=== PATIENT | female | born 1955 | race Caucasian/White ===

== ENCOUNTER 2016-11-17 14:39 | Observation (INO) | payer OTHER ==
[~2016-11-17] VITALS: Ht 162.6 cm; Wt 90.6 kg
--- NOTE | 2016-11-17 15:50 | DIAGNOSTIC IMAGING REPORT ---
PROCEDURE: XR CHEST 1 VIEW INDICATION: TIA TECHNIQUE: Portable AP view 03:39 p.m. COMPARISON: None. FINDINGS: Minor left mid lung atelectasis/scarring. Heart and mediastinum are normal. Thorax is normal. IMPRESSION: 1. Minor left mid lung atelectasis/scarring.
--- NOTE | 2016-11-17 15:53 | DIAGNOSTIC IMAGING REPORT ---
PROCEDURE: CT HEAD WITHOUT CONTRAST INDICATION: STROKE TECHNIQUE: Axial CT images were acquired through the head. Coronal and sagittal reformations were created. COMPARISON: None. FINDINGS: No intracranial hemorrhage or extraaxial fluid collections. Ventricles are normal in size, shape and position. There is no mass, mass effect or midline shift. The hallman-white matter differentiation is normal. There is no edema. The calvarium is intact. The paranasal sinuses and mastoid air cells are normally aerated. The extracranial soft tissues and orbits are normal. IMPRESSION: 1. No CT evidence of acute intracranial process. 2. Findings discussed with Dr. Shore at [address] scans at this facility use dose modulation, iterative reconstruction, and/or weight-based dosing when appropriate to reduce radiation dose to as low as reasonably achievable.
--- NOTE | 2016-11-17 17:18 | DIAGNOSTIC IMAGING REPORT ---
PROCEDURE: US BILATERAL CAROTID DOPPLER INDICATION: STROKE/CVA TECHNIQUE: Color Doppler duplex imaging of the carotid and vertebral vessels. COMPARISON: None. FINDINGS: Mild intimal thickening. Right common carotid artery peak systolic velocity 63 cm/second. Right internal carotid artery peak systolic velocity 102 cm/second. Right external carotid artery peak systolic velocity 66 cm/second. Right vhwlzhgn-pd-yytqau carotid artery ratio 1.6 Right vertebral artery peak systolic velocity 37 cm/second antegrade. Left common carotid artery peak systolic velocity 67 cm/second. Left internal carotid artery peak systolic velocity 96 cm/second. Left external carotid artery peak systolic velocity 64 cm/second. Left lbdelzuc-qi-kkedsc carotid artery ratio 1.4 Left vertebral artery peak systolic velocity 46 cm/second antegrade. IMPRESSION: 1. Mild intimal thickening without hemodynamically significant lesion 2. Bilateral ICA 5-15% stenosis Velocity criteria are extrapolated from diameter data as defined by the Society of Radiologists in Ultrasound Consensus Conference, Radiology 2003; 229; 340-346.
--- NOTE | 2016-11-17 17:18 | DIAGNOSTIC IMAGING REPORT ---
PROCEDURE: US BILATERAL CAROTID DOPPLER INDICATION: STROKE/CVA TECHNIQUE: Color Doppler duplex imaging of the carotid and vertebral vessels. COMPARISON: None. FINDINGS: Mild intimal thickening. Right common carotid artery peak systolic velocity 63 cm/second. Right internal carotid artery peak systolic velocity 102 cm/second. Right external carotid artery peak systolic velocity 66 cm/second. Right tgmttdcw-lu-ogaylw carotid artery ratio 1.6 Right vertebral artery peak systolic velocity 37 cm/second antegrade. Left common carotid artery peak systolic velocity 67 cm/second. Left internal carotid artery peak systolic velocity 96 cm/second. Left external carotid artery peak systolic velocity 64 cm/second. Left mjfropyc-md-egsxrk carotid artery ratio 1.4 Left vertebral artery peak systolic velocity 46 cm/second antegrade. IMPRESSION: 1. Mild intimal thickening without hemodynamically significant lesion 2. Bilateral ICA 5-15% stenosis Velocity criteria are extrapolated from diameter data as defined by the Society of Radiologists in Ultrasound Consensus Conference, Radiology 2003; 229; 340-346.
--- NOTE | 2016-11-17 20:02 | ED ORDER SUMMARY ---
..... Patient: CHRISTA MONTENEGRO OrderSheet [facility] VisitID: [id number] [place] [address] 61y, F Registration Date/Time: 11/17/2016 ORDER SHEET Weight: 99.7 kg (stated) Allergies: No Known Drug Allergy GENERAL ORDERS: Chest 1V Urgent (15:24 11/17/2016 Herminio JEAN BAPTISTE) (Ack 15:34 IJurca ER Tech1) (15:58 EHassan R.N.) CT Head wo Cont Urgent (15:25 11/17/2016 Herminio JEAN BAPTISTE) (Ack 15:34 Reala ER Tech1) (15:58 EHassan R.N.) Division Sergeant (Continuous) (15:11/17/2016 Herminio JEAN BAPTISTE) (Ack 15:34 BRITNEYurca ER Tech1) (15:38 EHassan R.N.) US Carotid Doppler Bilat Urgent (15:11/17/2016 Herminio JEAN BAPTISTE) (Ack 15:34 BRITNEYurca ER Tech1) (16:20 EHassan R.N.) Cardiac Panel Stat (15:25 11/17/2016 Herminio JEAN BAPTISTE) (Ack 15:34 BRITNEYurca ER Tech1) (15:38 EHassan R.N.) TSH Urgent (15:11/17/2016 Herminio JEAN BAPTISTE) (Ack 15:34 Nelson ER Tech1) (15:38 EHassan R.N.) Pulse oximeter (15:25 11/17/2016 Herminio JEAN BAPTISTE) (Ack 15:34 Nelson ER Tech1) (15:38 EHassan R.N.) EKG - ER Stat (15:25 11/17/2016 Herminio JEAN BAPTISTE) (Ack 15:34 Nelson ER Tech1) (15:58 EHassan R.N.) LP Tray (17:51 11/17/2016 Herminio JEAN BAPTISTE) (18:18 EHassan R.N.) CSF, Cell Count (on tube 3.) Urgent (19:08 11/17/2016 Herminio JEAN BAPTISTE) (Ack 19:15 SRedmond) (21:09 EHassan R.N.) CSF, Culture Urgent (19:08 11/17/2016 Herminio JEAN BAPTISTE) (Ack 19:15 SRejimmy) (21:09 EHassan R.N.) CSF, Glucose Urgent (19:08 11/17/2016 Herminio JEAN BAPTISTE) (Ack 19:15 SRejimmy) (21:09 EHassan R.N.) CSF, Protein Urgent (19:08 11/17/2016 Herminio JEAN BAPTISTE) (Ack 19:15 SRedmtrang) (21:10 EHassan R.N.) - (Viral cultures on CSF.) (20:56 11/17/2016 Herminio JEAN BAPTISTE) (21:04 SRerubenond) CTA Head and Neck (No) (N/A) Urgent (21:03 11/17/2016 Herminio JEAN BAPTISTE) (Ack 21:05 SRejimmy) (21:40 EHassan R.N.) BNP Urgent (21:04 11/17/2016 Herminio JEAN BAPTISTE) (Ack 21:06 SRedmond) MEDICATION ORDERS: Aspirin PO 325 mg (NOW) (20:08 11/17/2016 Herminio JEAN BAPTISTE) (Ack 20:22 RCollier R.N.) (20:27 Brianna R.N.) IV FLUIDS: IV Saline Lock (15:25 11/17/2016 Herminio JEAN BAPTISTE) (15:39 EHassan R.N.) Demerol IV 12.5 mg (NOW) (17:51 11/17/2016 Herminio JEAN BAPTISTE) (18:19 EHassan R.N.) Dilaudid IV 0.5 mg (NOW) (18:59 11/17/2016 Alpeshn R.N. verbal order read back to Herminio JEAN BAPTISTE) (19:11 EHassan R.N.) Zofran IV 4 mg (NOW) (21:23 11/17/2016 Herminio JEAN BAPTISTE) (21:38 EHassan R.N.) ORDER SHEET NOTES: [Electronically signed by Ada Nicole R.N. (23:26 11/17/2016)] [Electronically signed by Raoul Shore MD (07:37 11/18/2016)] [Electronically locked/signed by Ada Nicole R.N. (23:26 11/17/2016)]
--- NOTE | 2016-11-17 20:02 | ED CLINICAL REPORT ---
Clinical Report - Physicians/Mid Levels [facility] [address] [place] [address] 11/17/2016 14:41 Patient: CHRISTA MONTENEGRO Time Seen: 14:54 Nov 17 2016; initial documentation. Arrived- By private vehicle. Historian- patient. CPT: ER phys charges level 5 plus (#[id number]). EKG interpretation (#[id number]). HISTORY OF PRESENT ILLNESS Chief Complaint: PARESTHESIA and IMPAIRED SPEECH. VISUAL DISTURBANCE. This started Hand numbness started in the morning . About 1300 this developed into loss of vision to the left and blurry vision. Staff at admitting also thought she had slurred speech and is now gone. The patient has had numbness. No weakness. She has had difficulty with speech and visual disturbance. At its maximum deficit described as moderate. When seen in the E.D., it was gone. No dizziness, altered mental status, seizure or blackouts. Usually is alert and oriented X3 and has normal mobility. Similar symptoms previously: None. Recent medical care: Not recently seen/assessed. REVIEW OF SYSTEMS No fever, headache, head injury, chest pain or difficulty breathing. No cough, sputum production, sore throat or throat or abdominal pain. No nausea, diarrhea, black stools or stools or skin rash. No enlarged lymph nodes, joint pain, vomiting or bloody stools or stools. No epistaxis, hematuria, diabetic symptoms or easy bruising. All systems otherwise negative, except as recorded above. PAST HISTORY ( Hypercholesterolemia. COPD - Chronic Obstructive Pulmonary Disease. - ADDITIONAL SURGERIES: Appendectomy. Bone spur. Carpal Tunnel Surgery.). No history of stroke, seizure, dementia, hypertension or diabetes mellitus. Medications: Simvastatin Oral. Magnesium Oral. Zantac Oral. Allergies: No Known Drug Allergy. SOCIAL HISTORY Heavy tobacco smoker (cigarette)- 1 pack per day. No alcohol use or drug use. ADDITIONAL NOTES The nursing notes have been reviewed. PHYSICAL EXAM Vital Signs: 11/17/2016 14:41 BP: 148/61. HR: 74. RR: 15. O2 saturation: 95%. Temp: 98.5 F. Pain level now: 0/10. Appearance: Alert. No acute distress. Head: Head atraumatic. Eyes: Pupils equal, round and reactive to light. ENT: Normal ENT inspection. Airway intact. Neck: Normal inspection. Neck supple. CVS: Normal heart rate and rhythm. Heart sounds normal. Pulses normal. Respiratory: No respiratory distress. Breath sounds normal. Abdomen: Soft and nontender. No organomegaly. Back: Normal inspection. Skin: Skin warm. Normal skin color. No rash. Extremities: No lower extremity edema. Neuro: Alert. Oriented X 3. Mood/affect normal. Speech normal. Cranial nerves normal (as tested). No cerebellar findings. No motor deficit. Reflexes normal. NIH Stroke Scale: score 0. Level of Consciousness: alert (0). LOC Questions: both (0). LOC Commands: both (0). Best gaze: normal (0). Visual field loss: none (0). Facial palsy: normal (0). Motor arm: no drift right arm (0) and no drift left arm (0). Motor leg: no drift right leg (0) and no drift left leg (0). Limb ataxia: none (0). Sensory loss: none (0). Aphasia: none (0). Dysarthria: normal (0). Extinction and inattention: none (0). LABS, X-RAYS, AND EKG EKG: Normal sinus rhythm. Normal P waves. Normal QRS complex. Normal axis. Normal ST and T waves. Prior EKG unavailable. The study has been interpreted contemporaneously. The study has been independently viewed by me. The EKG appears to be a good tracing. Chest X-ray: No infiltrate. Views: AP (portable). Technique: good. The X-rays were independently viewed by me and interpreted contemporaneously by me. CT Head: No acute disease. Laboratory Tests: CBC w Diff: (KEVIN: 11/17/2016 14:45) ( MsgRcvd 11/17/2016 15:38) Final results Test Result Flag Units (Reference) WHITE BLOOD COUNT 7.5 K/uL (4.5-11.5) RED BLOOD COUNT 4.75 M/uL (4.00-5.20) HEMOGLOBIN 15.4 gm/dL (12.0-16.0) HEMATOCRIT 46.0 % (36.0-46.0) MEAN CELL VOLUME 97 fL (80-100) MEAN CORPUSCULAR HGB 32 pg (26-34) MEAN CORPUSCULAR HGB CONC 33 g/dL (31-37) RED CELL DISTRIBUTION WIDTH 12.6 % (11.6-14.8) PLATELET COUNT 245 K/uL (150-400) NEUTROPHIL % 50.9 % (50-75) LYMPH % 38.0 % (25-40) MONO % 5.9 % (3-14) EOSINOPHIL % 4.2 H % (0-4) BASOPHIL % 1.0 % (0-2) CHEM 13 PANEL: (KEVIN: 11/17/2016 14:45) ( MsgRcvd 11/17/2016 15:57) Final results Test Result Flag Units (Reference) GLUCOSE 90 mg/dL (70-110) BUN 10 mg/dL (7-18) CREATININE 0.9 mg/dL (0.6-1.3) Estimated GFR >60 mL/min Estimated GFR- >60 mL/min Note: Persistent reduction over 3 months in eGFR<60 mL/min/1.73 m2 defines CKD. Patients with eGFR values>=60 mL/min/1.73 m2 may also have CKD if evidence ofpersistent proteinuria. Additional information may be foundat www.kidney.org. SODIUM 144 mmol/L (136-145) POTASSIUM 4.0 mmol/L (3.5-5.1) CHLORIDE 109 H mmol/L (98-107) CARBON DIOXIDE 28 mmol/L (21-32) CALCIUM 9.2 mg/dL (8.5-10.1) TOTAL PROTEIN 7.7 g/dL (6.4-8.2) ALBUMIN 3.9 g/dL (3.3-5.0) BILIRUBIN, TOTAL 0.3 mg/dL (0.0-1.0) ALKALINE PHOSPHATASE 119 H U/L (46-116) AST (SGOT) 14 L U/L (15-37) ALT (SGPT) 21 U/L (12-78) CPK 121 U/L (24-260) MAGNESIUM 2.0 mg/dL (1.8-2.4) TROPONIN I <0.05 L ng/mL (0.00-1.5) TROPONIN REFERENCE RANGE:<0.1 NEGATIVE0.1-1.5 INDETERMINANT>1.5 POSITIVE THYROID STIMULATING HORMONE 2.273 uIU/mL (0.30-3.74) . Note - Tests: (Carotid US negative.). PROGRESS AND PROCEDURES Lumbar Puncture: Lumbar puncture performed by me. Risks, benefits and alternatives were discussed. Consent was obtained from patient. Sterile technique was used. Local lidocaine anesthesia was used. The area was cleansed with Betadine. Patient was in sitting position. LP performed at the L4-5 interspace. A 22g needle was used. No complications observed. Color- clear. Protein- 52, mildly increased. Glucose, normal. RBC's. (1). WBC's- 0. Course of Care: 17:36 11/17/16. Reports visual changes are back. Evaluation shows slight medial field defect right eye. Pt does have progressive neck pain and stiffness. She has no other neuro deficits. Will need spinal tap. CT is negative. Discussed with pt who wishes to proceed. ASA 325 mg po. Discussed case with on-call health care provider, ([facility] stroke team. Dr Montano.who is accepting admission to [facility]>). Reviewed test results. Agreed upon treatment plan. Refers case to other health care provider. Patient/family counseled. Old medical records ordered. Disposition orders written. Disposition: Admitted to Acute Care. 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 (Electronically signed by Raoul Shore MD 11/18/2016 7:37)
--- NOTE | 2016-11-17 20:02 | ED NURSING NOTES ---
Clinical Report - Nurses [facility] [address] [place] [address] 11/17/2016 14:41 Patient: CHRISTA MONTENEGRO TRIAGE Triage time 1440 PM. Acuity: LEVEL 2. Chief Complaint: WEAKNESS, NUMBNESS and IMPAIRED SPEECH. Alert. No acute distress. RAMANDEEP COMA SCORE: Stamps Coma Scale: 15- eyes open spontaneously (4); best verbal response- oriented x 4 (5); best motor response- obeys commands (6). --14:57 Ada Nicole R.N. 14:41 11/17/16. BP: 148/61. HR: 74. RR: 15. O2 saturation: 95% on room air. Temp: 98.5 F. Pain level now: 0/10. --14:57 Ada Nicole R.N. Weight: 99.7 kg stated. Height/Length: 63 inches Per Patient. BMI: 38.9. --14:42 Ada Nicole R.N. Medications Zantac Oral. --14:54 Ada Nicole R.N. Magnesium Oral. --14:54 Ada Nicole R.N. Simvastatin Oral. --14:57 Ada Nicole R.N. Allergies No Known Drug Allergy. --14:52 Ada Nicole R.N. Medication/allergy information source: the patient. --14:57 Ada Nicole R.N. History Arrived by private vehicle. Historian: patient. Accompanied by family. Primary physician (Dr. Lanny pierce). ( Pt states at home when started having numbness and tingling on the left hand, denies radiating anywhere else, then started having blurred vision, slurred speech and H/A. Called [facility] at around 1pm which EMS was called pt refused to come via EMS and had a friend drive her to the ED. Pt states that all symptoms have resolved. As per registration, pt was having slurred speech upon arrival. Code stroke called, FAST exam negative.). This started today 1130 AM. Onset. (1130 AM). She has had a headache. No impaired speech, trouble walking or swallowing, dizziness or weakness. No numbness. 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 PAST MEDICAL HX: Immunizations: up-to-date. SOCIAL HX: Heavy tobacco smoker- less than 1 pack per day. No alcohol use or drug use. No infectious disease exposure. SELF HARM ASSESSMENT: A self harm assessment was performed. The patient answered "no" to the question "Do you have thoughts of harming or killing yourself?" and "Have you recently had thoughts about harming or killing others?". FALL RISK ASSESSMENT: Fall risk assessment completed. No fall risk identified. NUTRITIONAL RISK ASSESSMENT: The nutritional risk assessment revealed no deficiencies. FUNCTIONAL ASSESSMENT: Functional assessment: no impairments noted. LEARNING NEEDS ASSESSMENT: The learning needs assessment revealed no barriers. SKIN INTEGRITY ASSESSMENT: Skin integrity risk assessment completed. No skin integrity risk identified. --14:57 Ada Nicole R.N. PROBLEMS: Hypercholesterolemia. COPD - Chronic Obstructive Pulmonary Disease. --14:54 Ada Nicole R.N. ADDITIONAL SURGERIES: Appendectomy. Bone spur. Carpal Tunnel Surgery. --14:54 Ada Nicole R.N. Interventions ID band on patient. --14:57 Ada Nicole R.N. PHYSICAL ASSESSMENT Baseline functional status: usually alert, oriented x4 and cooperative. Verbal response: usually clear. Motor response: usually steady gait and moves all extremities equally GENERAL / NEURO / PSYCH: Awake. Oriented X 4. Speech normal. Slurred speech (as per registration noted a bit of slurred speech/ resolved). Mood/affect normal. Moves all extremities. No motor deficit. No sensory deficit. HEENT: Pupils equal, round and reactive to light. Pharynx within normal limits. RESPIRATORY: Breath sounds within normal limits. Respirations not labored. CVS: Normal sinus rhythm noted. Capillary refill less than 2 seconds. SKIN: Skin is intact, warm and dry. --14:59 Ada Nicole R.N. NURSING PROGRESS NOTES Cardiac rhythm: normal sinus rhythm. The initial plan of care for this patient has been created This plan of care was discussed with the patient. Patient ID band checked for patient name, birthdate and medical record number: patient confirmed. Blood samples drawn from the right forearm by nurse per protocol ; labeled in presence of the patient and sent to lab: rainbow set. Patient gowned. Reassurance given. Patient identifiers checked. Call light placed in reach. Side rails up x 2. Bed placed in lowest position. Brakes of bed on. Patient ready for evaluation- ED physician notified. --15:00 Ada Nicole R.N. 14:59 11/17/16. BP: 141/72. HR: 74. RR: 22. O2 saturation: 96%. Pain level now: 0/10. --15:00 Ada Nicole R.N. The patient is calm. Overall patient status is the same- she states feels better. GENERAL / NEURO / PSYCH: The patient reports headache. Denies weakness and numbness. Alert. Oriented X 4. Speech normal. No weakness. HEENT: Denies visual field deficit. Pupillary exam: Right pupil 2mm, round and briskly reactive to light directly. Left pupil: 2mm, round and briskly reactive to light directly. GI / : Denies nausea. --15:00 Ada Nicole R.N. 15:14 11/17/2016 Site #1 started via IV in the right forearm with an 20g angiocath; one attempt. Blood drawn: rainbow set. Labeled in the presence of the patient and sent to the lab. --15:39 Ada Nicole R.N. 16:01 11/17/16. BP: 136/76. HR: 72. RR: 14. O2 saturation: 100% on room air. Temp: 98.3 F (oral). Pain level now: 0/10. --16:02 Ada Nicole R.N. Cardiac rhythm: normal sinus rhythm. radiation monitor, pulse oximeter and NIBP monitor placed on patient. Reassurance given. GENERAL / NEURO / PSYCH: The patient reports headache. Denies weakness and numbness. Speech normal. No weakness. HEENT: Denies visual field deficit. GI / : Denies nausea. --16:02 Ada Nicole R.N. 15:30 11/17/16. BP: 159/71 (regular adult cuff) taken on the left arm, via an automated monitor, while lying. HR: 78. RR: 12. O2 saturation: 100% on room air. Pain level now: 0/10. --16:04 Ada Nicole R.N. late entry - 15:30 PM. Cardiac rhythm: normal sinus rhythm. radiation monitor, pulse oximeter and NIBP monitor placed on patient. Reassurance given. The patient is calm. Overall patient status is improved- she states feels better. Call light placed in reach. --16:04 Ada Nicole R.N. 15:15 11/17/16. BP: 130/78 (regular adult cuff) taken on the left arm, via an automated monitor, while lying. HR: 70. RR: 14. O2 saturation: 100%. Pain level now: 0/10. --16:07 Ada Nicole R.N. late entry - 15:15 PM. Cardiac rhythm: normal sinus rhythm. GENERAL / NEURO / PSYCH: The patient reports headache. Denies weakness and numbness. No decreased alertness. Speech normal. No weakness or numbness. HEENT: Denies visual field deficit. Pupillary exam: Right pupil 2mm, round and briskly reactive to light directly. Left pupil: 2mm, round and briskly reactive to light directly. GI / : Denies nausea. SKIN: Skin is warm. --16:07 Ada Nicole R.N. 18:09 11/17/2016 Demerol (Meperidine HCl) IVP 12.5 mg given over 30 second(s) via site #1. Allergies verified and confirmed 5 rights. IV patency established. IV site checked: no pain, redness, or swelling. IV flushed thoroughly pre- and post-medication administration. IVP given by RN. --18:19 Ada Nicole R.N. 18:00 11/17/16. BP: 156/71 (regular adult cuff) taken on the left arm, via an automated monitor, while sitting. HR: 72 (regular). RR: 15. O2 saturation: 100% on room air. Temp: 98.5 F (oral). Pain level now: 0/10. --18:21 Ada Nicole R.N. Cardiac rhythm: normal sinus rhythm. radiation monitor, pulse oximeter and NIBP monitor placed on patient. Reassurance given. The patient is calm and resting quietly. Overall patient status is the same- she states feels the same. ( at approximately 1710, pt complaint of "blurred vision" MD aware, LP ordered, pt aware of progress. Will monitor). Call light placed in reach. Side rails up x 1. Bed placed in lowest position. Brakes of bed on. --18:21 Ada Nicole R.N. 18:47 11/17/2016 Demerol IVP Response: no adverse reaction. --19:12 Ada Nicole R.N. 19:06 11/17/2016 Dilaudid (HYDROmorphone HCl PF) IVP 0.5 mg given over 1 minute(s) via site #1. Allergies verified, confirmed 5 rights and sedative warning given to the patient. IV patency established. IV site checked: no pain, redness, or swelling. IV flushed thoroughly pre- and post-medication administration. IVP given by RN. --19:11 Ada Nicole R.N. Cardiac rhythm: normal sinus rhythm. radiation monitor, pulse oximeter and NIBP monitor placed on patient. Reassurance given. ( Consent obtained for LP, procedure done and tolelated well, a bit "dizzy post" VSS, pt laying flat as ordered). GENERAL / NEURO / PSYCH: The patient reports headache. Denies weakness and numbness. GI / : Denies nausea. Patient identifiers checked. Call light placed in reach. Side rails up. --19:15 Ada Nicole R.N. 19:12 11/17/16. BP: 121/63. HR: 66. RR: 14. O2 saturation: 98% on room air. Temp: 98.4 F (oral). Pain level now: 0/10. --19:15 Ada Nicole R.N. Cardiac rhythm: normal sinus rhythm. radiation monitor, pulse oximeter and NIBP monitor placed on patient. Reassurance given. GENERAL / NEURO / PSYCH: The patient reports headache. Denies weakness and numbness. Speech normal. No weakness. HEENT: Denies visual field deficit. GI / : Denies nausea. Call light placed in reach. --20:03 Ada Nicole R.N. 20:02 11/17/16. BP: 148/55. HR: 57. RR: 15. O2 saturation: 100% on room air. Pain level now: 02/06. --20:03 Ada Nicole R.N. 20:26 11/17/2016 Aspirin PO Tablets 325 mg given. Allergies verified and confirmed 5 rights. --20:27 Katie Garrison R.N. 21:13 11/17/2016 Dilaudid IVP Response: no adverse reaction the patient feels the same. --21:38 Ada Nicole R.N. 21:23 11/17/2016 Aspirin PO Response: no adverse reaction. --21:38 Ada Nicole R.N. 21:38 11/17/2016 Zofran (Ondansetron HCl) IVP 4 mg given over 2 minute(s) via site #1. Allergies verified and confirmed 5 rights. IV patency established. IV site checked: no pain, redness, or swelling. IV flushed thoroughly pre- and post-medication administration. IVP given by RN. --21:38 Ada Nicole R.N. Cardiac rhythm: normal sinus rhythm. Reassurance given. Overall patient status is the same- she states feels the same. ( Just returned from CTA, pt felt nauseas, zofran given as ordered, VSS, awaiting on bed asigment). GENERAL / NEURO / PSYCH: The patient reports headache. GI / : The patient reports nausea. Patient returned from CT by stretcher with nurse. (2142 PM). --21:43 Ada Nicole R.N. 21:41 11/17/16. BP: 103/88. HR: 75. RR: 18. O2 saturation: 96% on room air. Pain level now: 01/07. --21:43 Ada Nicole R.N. 21:44 11/17/2016 Site #1 reassessed; patent, infusing well and no signs of infection or infiltration. Converted to saline lock. Flushed with 10 mL saline. --21:44 Ada Nicole R.N. late entry - 20:00 PM. --21:44 Ada Nicole R.N. 20:00 11/17/16. BP: 133/69. HR: 76. RR: 14. O2 saturation: 96% on room air. Pain level now: 12/07. --21:44 Ada Nicole R.N. DISPOSITION / DISCHARGE Cardiac rhythm: normal sinus rhythm. Departure time: 2236 PM. Condition at departure: improved and stable. The goals identified in the patient's plan of care were met. Report was given to a nurse. Report included patient's care, treatment, medications, reviewed medication reconcilliation, and condition (including any recent changes or anticipated changes). All questions were answered. Report was acknowledged and care was transferred. (INDIA Baker). ( All concerns addressed, VSS, pt NPO as ordered, n/v resolved, neuro status intact). FALL RISK ASSESSMENT: Fall risk assessment completed. No fall risk identified. --23:25 Ada Nicole R.N. 22:38 11/17/16. BP: 130/78 (regular adult cuff) taken on the left arm, via an automated monitor, while lying. HR: 72 (regular). RR: 14. O2 saturation: 98% on room air. Temp: 97.3 F (oral). Pain level now: 01/07. --23:25 Ada Nicole R.N. Locked/Released at 11/17/2016 23:26 by Ada Nicole R.N.
--- NOTE | 2016-11-17 20:02 | ED ORDER SUMMARY ---
..... Patient: CHRISTA MONTENEGRO OrderSheet [facility] VisitID: [id number] [place] [address] 61y, F Registration Date/Time: 11/17/2016 ORDER SHEET Weight: 99.7 kg (stated) Allergies: No Known Drug Allergy GENERAL ORDERS: Chest 1V Urgent (15:24 11/17/2016 Herminio JEAN BAPTISTE) (Ack 15:34 IJurca ER Tech1) (15:58 EHassan R.N.) CT Head wo Cont Urgent (15:25 11/17/2016 Herminio JEAN BAPTISTE) (Ack 15:34 Reala ER Tech1) (15:58 EHassan R.N.) Growth Media Mixer Mushroom (Continuous) (15:11/17/2016 Herminio JEAN BAPTISTE) (Ack 15:34 BRITNEYurca ER Tech1) (15:38 EHassan R.N.) US Carotid Doppler Bilat Urgent (15:11/17/2016 Herminio JEAN BAPTISTE) (Ack 15:34 BRITNEYurca ER Tech1) (16:20 EHassan R.N.) Cardiac Panel Stat (15:25 11/17/2016 Herminio JEAN BAPTISTE) (Ack 15:34 BRITNEYurca ER Tech1) (15:38 EHassan R.N.) TSH Urgent (15:11/17/2016 Herminio JEAN BAPTISTE) (Ack 15:34 Nelson ER Tech1) (15:38 EHassan R.N.) Pulse oximeter (15:25 11/17/2016 Herminio JEAN BAPTISTE) (Ack 15:34 Nelson ER Tech1) (15:38 EHassan R.N.) EKG - ER Stat (15:25 11/17/2016 Herminio JEAN BAPTISTE) (Ack 15:34 Nelson ER Tech1) (15:58 EHassan R.N.) LP Tray (17:51 11/17/2016 Herminio JEAN BAPTISTE) (18:18 EHassan R.N.) CSF, Cell Count (on tube 3.) Urgent (19:08 11/17/2016 Herminio JEAN BAPTISTE) (Ack 19:15 SRedmond) (21:09 EHassan R.N.) CSF, Culture Urgent (19:08 11/17/2016 Herminio JEAN BAPTISTE) (Ack 19:15 SRejimmy) (21:09 EHassan R.N.) CSF, Glucose Urgent (19:08 11/17/2016 Herminio JEAN BAPTISTE) (Ack 19:15 SRejimmy) (21:09 EHassan R.N.) CSF, Protein Urgent (19:08 11/17/2016 Herminio JEAN BAPTISTE) (Ack 19:15 SRedmtrang) (21:10 EHassan R.N.) - (Viral cultures on CSF.) (20:56 11/17/2016 Herminio JEAN BAPTISTE) (21:04 SRerubenond) CTA Head and Neck (No) (N/A) Urgent (21:03 11/17/2016 Herminio JEAN BAPTISTE) (Ack 21:05 SRejimmy) (21:40 EHassan R.N.) BNP Urgent (21:04 11/17/2016 Herminio JEAN BAPTISTE) (Ack 21:06 SRedmond) MEDICATION ORDERS: Aspirin PO 325 mg (NOW) (20:08 11/17/2016 Herminio JEAN BAPTISTE) (Ack 20:22 RCollier R.N.) (20:27 Brianna R.N.) IV FLUIDS: IV Saline Lock (15:25 11/17/2016 Herminio JEAN BAPTISTE) (15:39 EHassan R.N.) Demerol IV 12.5 mg (NOW) (17:51 11/17/2016 Herminio JEAN BAPTISTE) (18:19 EHassan R.N.) Dilaudid IV 0.5 mg (NOW) (18:59 11/17/2016 Alpeshn R.N. verbal order read back to Herminio JEAN BAPTISTE) (19:11 EHassan R.N.) Zofran IV 4 mg (NOW) (21:23 11/17/2016 Herminio JEAN BAPTISTE) (21:38 EHassan R.N.) ORDER SHEET NOTES: [Electronically signed by Ada Nicole R.N. (23:26 11/17/2016)] [Electronically signed by Raoul Shore MD (07:37 11/18/2016)] [Electronically locked/signed by Ada Nicole R.N. (23:26 11/17/2016)]
[2016-11-17] MEDS ORDERED: MAGNESIUM ELEME30 MG PO (21:12)
[2016-11-17] MEDS ORDERED: LIPITOR20 MG PO (21:13)
[2016-11-17] MEDS ORDERED: MOTRIN100 MG/5 M PO (21:14)
[2016-11-17] MEDS ORDERED: ZANTAC 150 MAX150 MG PO (21:15)
--- NOTE | 2016-11-17 22:37 | DIAGNOSTIC IMAGING REPORT ---
PROCEDURE: CTA HEAD AND NECK INDICATION: TIA TECHNIQUE: Axial thin-slice CTA images through the neck and head were acquired following uncomplicated administration of 116 ml Isovue 370 IV contrast. Coronal and sagittal MIP reformations were created. COMPARISON: None. FINDINGS: Head: Anterior circulation: Mildly diminutive left A1 segment, normal variant. No occlusion, aneurysm, or stenosis. Mild calcific atherosclerosis of the left internal carotid artery in the cavernous segment. Posterior circulation: No occlusion, aneurysm, or stenosis. 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 Neck: Carotid system: The left internal carotid artery is moderately diffusely diminutive in the midportion for length of about 2.2 cm. There is circumferential decrease in the diameter. No eccentric focal calcified or noncalcified plaque. The distal internal carotid artery is of normal caliber to the terminus. The left common carotid and carotid bulb appear normal. The right carotid system is normal. Vertebral system: Codominant, patent vertebral arteries bilaterally. No dissection. 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 IMPRESSION: 1. No significant stenosis, occlusion, or aneurysm in the brain vasculature. 2. Moderate diffusely diminutive mid left internal carotid artery without focal plaque formation visible. The distal portion is of normal caliber and clinical significance of this finding is uncertain. 3. 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 4. Findings called to the emergency room and discussed with Dr. Montano.
[2016-11-17 22:38] VITALS: BP 155/56
--- NOTE | 2016-11-17 23:26 | NUR ---
PT ARRIVED TO ROOM 206 AROUND 2235 FROM ED VIA STRETCHER AND REDEVELOPMENT SPECIALIST. PT ABLE TO AMBULATE TO BED. A&OX4. MADE COMFORTABLE IN BED. TELEMETRY STARTED. FAST TEST NEGATIVE. NO S/SX OF STROKE OR NEUROLOGICAL DEFICITS. PT REFUSES NICOTINE PATCH AT THIS TIME. RN BEDSIDE SWALLOW SCREEN DONE AND PT PASSED. CLARIFIED DIET ORDER WITH DR. RICHARD AND ORDER IS FOR CARDIAC DIET WITH REGULAR TEXTURE AND THIN LIQUIDS STARTING NOW. REPORT GIVEN AT BEDSIDE TO INDIA BONILLA.
--- NOTE | 2016-11-18 00:29 | Progress Note ---
Subjective General General Admission History and Physical Examination Patient Name: Lisa Luna Admission Date: November 17, 2016 Primary Care Provider: [facility] Attending Physician: Justino Montano M.D. Admitting Physician: Justino Montano M.D. Code Status: Full Code Room: 206 SUBJECTIVE Historian: Patient Reliability: Good Chief Complaint: Nausea, headache Numbness left hand Visual changes. Partial visual loss with resolution History of Present Illness: The patient is a 61-year-old white female with significant past medical history COPD, remote history of smoking, bilateral median nerve entrapment, status post carpal tunnel reduction who presented to [facility] emergency department on the day of admission secondary to complaints of numbness and tingling involving the left hand, mostly the middle finger, along with bleeding visual loss and changes. Patient first began having noticeable subjective change was within the past 12- 14 hours. Secondary to the above, the patient was admitted by Justino Montano MD for further evaluation and treatment. The history of present illness apparently began on the day of admission when the patient noted this afternoon that she was experiencing a numbing sensation in the left hand. She mostly reports of numbness sensation in the left Middle Finger that extended to the left hand. She states that the numbness came on abruptly and then began to fade. Patient was taken to the [facility] emergency department with concern for potential stroke. While in the emergency department , patient experienced a visual change hemianopsia on the left. This subsequently resolved within 38-40 minutes. This was followed by visual loss in the right eye. The [facility]. He had concern for potential TIA. CT of the brain was performed along with carotid Doppler studies. Both which revealed no significant acute ischemic changes or signs of bleed. [facility] ER also called [facility] stroke [facility]. The attending discuss concern for the potential for a stroke. Therefore, recommended that protocol be followed and patient be admitted to [facility] for observation. [facility] attending recommended TPA if symptoms again returned. He also recommended the patient have a CT angiogram of the brain followed by an arm MRI This was also done and showed no significant acute changes. Patient has no known history of stroke. Patient does have family history of stroke. Patient's had history of HLD, with well-controlled cholesterol levels. Patient reports that she had headache on admission to the ED. Emergency department. Also performed a spinal tap. This showed a slight elevation of the CSF protein (50). No other significant findings were noted. No elevated white count. No elevated glucose. Secondary to the above the patient was admitted with a diagnosis of headache, neck pain, potential TIA and stroke with recommendations for observational Rule out, PAST MEDICAL HISTORY Illnesses: 1) COPD 2) HLD Allergies: 1. No Known Drug Allergies Medications: 1. Atorvastatin 20 mg by mouth daily 2. Albuterol 1-2 puffs by inhalation every 6 hours when necessary 3. Motrin ftyr-wrm-sfunhry 200 mg twice a day Surgery: 1. Bilateral carpal tunnel release 2 2) ulnar nerve at the ulnar groove 1 3) left hand bony segment repair. Injuries: 1. Overuse injuries, bilateral hands Hospitalizations: 1. For above medical problems FAMILY HISTORY Parents: 1. Father, history of stroke 2. Mother, unknown SOCIAL HISTORY 1. Marital Status: 2. Hoahaoism: Unknown 3. Education: High school and more 4. 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 Occupational health exposures: none known. HABITS 1. Tobacco: No history smoking 2. Drugs: None 3. Alcohol: None HEALTH SUPERVISION Item/Test 1. Not reviewed IMMUNIZATIONS: 1. Pneumococcal: Unknown 2. Influenza: Unknown 3. Tetanus: Unknown REVIEW OF SYSTEMS Remarkable for those things stated in the history of present illness and past medical history. Seventeen point review of system completed with the following notable findings: General: exhausted, headache, ENT: visual changes. Nose: non drainage, Respiratory: no cough, wheezing, Cardiovascular:, no shortness of breath Musculoskeletal: neck, hand and headaches. Neurologic: visual changes. Psychological: insomnia, anxiety, Physical Exam Vital Signs / I&Os Vital Signs Date Time Temp Pulse Resp B/P Pulse O2 O2 Flow FiO2 Ox Delivery Rate 11/18 0658 98.1 65 19 124/50 96 Room Air 11/18 0303 97.9 59 16 120/50 96 Room Air 11/18 0015 Room Air 11/17 2238 97.9 65 16 155/56 96 Room Air I&O 11/17 0800 11/17 1600 11/18 0000 Intake Total Output Total Balance General Appearance Oriented X3, Cooperative, No acute distress HEENT Atraumatic, PERRLA, EOMI, Moist mucous membranes Lungs Clear to auscultation, Normal air movement Neck No JVD, No thyromegaly, No lymphadenopathy, pain in the posterior neck with forced cervical flexion Cardiovascular Regular rate and rhythm, Normal S1 and S2 Abdomen Soft, No tenderness Extremities No cyanosis, No edema, No tenderness Skin No Breakdown, Nursing staff noting a fungal dermatitis. Neurological No lateralizing signs, strength equal bilaterally. Normal sensation. Cranial nerve exam was negative for pathologic change, no speech impediment or slurred speech. Normal facial contour. Visual meadows intact Psych/Mental Status Mood normal LAB Results Laboratory Tests 11/17 11/17 11/17 11/17 1445 1445 1525 1910 Chemistry Plasma Sodium (136 - 145 mmol/L) 144 Plasma Potassium (3.5 - 5.1 mmol/L) 4.0 Plasma Chloride (98 - 107 mmol/L) 109 CO2 (Enzymatic) (21 - 32 mmol/L) 28 BUN (7 - 18 mg/dL) 10 Creatinine (0.6 - 1.3 mg/dL) 0.9 Est GFR ( Amer) (mL/min) >60 Est GFR (Non-Af Amer) (mL/min) >60 Glucose (70 - 110 mg/dL) 90 Plasma Calcium (8.5 - 10.1 mg/dL) 9.2 Plasma Magnesium (1.8 - 2.4 mg/dL) 2.0 Total Bilirubin (0.0 - 1.0 mg/dL) 0.3 AST (15 - 37 U/L) 14 ALT (12 - 78 U/L) 21 Alkaline Phosphatase (46 - 116 U/L) 119 Creatine Kinase (24 - 260 U/L) 121 Troponin (0.00 - 1.5 ng/mL) <0.05 B-Natriuretic Peptide (5 - 100 pg/ml) 29.0 Total Protein (6.4 - 8.2 g/dL) 7.7 Albumin (3.3 - 5.0 g/dL) 3.9 TSH 3rd Generation (0.30 - 3.74 uIU/mL) 2.273 Cancelled Hematology WBC (4.5 - 11.5 K/uL) 7.5 RBC (4.00 - 5.20 M/uL) 4.75 Hgb (12.0 - 16.0 gm/dL) 15.4 Hct (36.0 - 46.0 %) 46.0 MCV (80 - 100 fL) 97 MCH (26 - 34 pg) 32 RDW (11.6 - 14.8 %) 12.6 Neut % (Auto) (50 - 75 %) 50.9 Lymph % (Auto) (25 - 40 %) 38.0 [place] % (Auto) (3 - 14 %) 5.9 Eos % (Auto) (0 - 4 %) 4.2 Baso % (Auto) (0 - 2 %) 1.0 Plt Count, EDTA (150 - 400 K/uL) 245 PUBS MCHC (31 - 37 g/dL) 33 Other Body Source CSF Tube Number 3 CSF Volume (CC) 3.0 CSF Appearance CLEAR CSF Color COLORLESS CSF WBC (0 - 5 WBC/mm3) 0 CSF RBC (0 - 5 RBC/mm3) 1 CSF Glucose (40 - 75 mg/dL) 57 CSF Total Protein (15 - 45 mg/dL) 51.9 Microbiology Date/Time Procedure - Status Source Growth 11/17 1909 CSF Culture - RES CSF 11/17 1909 Gram Stain - RES CSF Imaging CTA HEAD AND NECK IMPRESSION: 1. No significant stenosis, occlusion, or aneurysm in the brain vasculature. 2. Moderate diffusely diminutive mid left internal carotid artery without focal plaque formation visible. The distal portion is of normal caliber and clinical significance of this finding is uncertain. 3. 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 Chest x-ray IMPRESSION: 1. Minor left mid lung atelectasis/scarring. PROCEDURE: US BILATERAL CAROTID DOPPLER IMPRESSION: 1. Mild intimal thickening without hemodynamically significant lesion 2. Bilateral ICA 5-15% stenosis Assessment and Plan Problem List 1. TIA (transient ischemic attack) Plan Symptoms of been waxing and waning. Called [facility] attending stroke attending. All imaging is been negative. Her acute signs of ischemic changes or bleed. Plan to repeat MRI imaging the a.m. Patient is on stroke precautions and will have neuro checks every 2 hours. Patient will be placed on telemetry Carotid Dopplers showing no significant plaque. 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 Patient on atorvastatin 40 mg daily. Patient has recommendations through neurology to give TPA if symptoms again return. Starting IV fluid . Patient will have light meal. Patient will be monitored and watched. 2. Headache Plan Headache upon arrival to the ED. Spinal tap was negative. There is an elevated protein count. However, hold her constituents of the tap were not significant. Patient having worsening improving headache associated nausea. Patient was given antinausea formulations with improvement. Monitor headache. Treat with NSAIDs appropriately E&M Codes Roundin
--- NOTE | 2016-11-18 00:29 | Progress Note ---
Subjective General General Admission History and Physical Examination Patient Name: Lisa Luna Admission Date: November 17, 2016 Primary Care Provider: [facility] Attending Physician: Justino Montano M.D. Admitting Physician: Justino Montano M.D. Code Status: Full Code Room: 206 SUBJECTIVE Historian: Patient Reliability: Good Chief Complaint: Nausea, headache Numbness left hand Visual changes. Partial visual loss with resolution History of Present Illness: The patient is a 61-year-old white female with significant past medical history COPD, remote history of smoking, bilateral median nerve entrapment, status post carpal tunnel reduction who presented to [facility] emergency department on the day of admission secondary to complaints of numbness and tingling involving the left hand, mostly the middle finger, along with bleeding visual loss and changes. Patient first began having noticeable subjective change was within the past 12- 14 hours. Secondary to the above, the patient was admitted by Justino Montano MD for further evaluation and treatment. The history of present illness apparently began on the day of admission when the patient noted this afternoon that she was experiencing a numbing sensation in the left hand. She mostly reports of numbness sensation in the left Middle Finger that extended to the left hand. She states that the numbness came on abruptly and then began to fade. Patient was taken to the [facility] emergency department with concern for potential stroke. While in the emergency department , patient experienced a visual change hemianopsia on the left. This subsequently resolved within 38-40 minutes. This was followed by visual loss in the right eye. The [facility]. He had concern for potential TIA. CT of the brain was performed along with carotid Doppler studies. Both which revealed no significant acute ischemic changes or signs of bleed. [facility] ER also called [facility] stroke Center. The attending discuss concern for the potential for a stroke. Therefore, recommended that protocol be followed and patient be admitted to [facility] for observation. [facility] attending recommended TPA if symptoms again returned. He also recommended the patient have a CT angiogram of the brain followed by an arm MRI This was also done and showed no significant acute changes. Patient has no known history of stroke. Patient does have family history of stroke. Patient's had history of HLD, with well-controlled cholesterol levels. Patient reports that she had headache on admission to the ED. Emergency department. Also performed a spinal tap. This showed a slight elevation of the CSF protein (50). No other significant findings were noted. No elevated white count. No elevated glucose. Secondary to the above the patient was admitted with a diagnosis of headache, neck pain, potential TIA and stroke with recommendations for observational Rule out, PAST MEDICAL HISTORY Illnesses: 1) COPD 2) HLD Allergies: 1. No Known Drug Allergies Medications: 1. Atorvastatin 20 mg by mouth daily 2. Albuterol 1-2 puffs by inhalation every 6 hours when necessary 3. Motrin sxer-rvy-odgihvm 200 mg twice a day Surgery: 1. Bilateral carpal tunnel release 2 2) ulnar nerve at the ulnar groove 1 3) left hand bony segment repair. Injuries: 1. Overuse injuries, bilateral hands Hospitalizations: 1. For above medical problems FAMILY HISTORY Parents: 1. Father, history of stroke 2. Mother, unknown SOCIAL HISTORY 1. Marital Status: 2. Hindu: Unknown 3. 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 Occupational health exposures: none known. HABITS 1. Tobacco: No history smoking 2. Drugs: None 3. Alcohol: None HEALTH SUPERVISION Item/Test 1. Not reviewed IMMUNIZATIONS: 1. Pneumococcal: Unknown 2. Influenza: Unknown 3. Tetanus: Unknown REVIEW OF SYSTEMS Remarkable for those things stated in the history of present illness and past medical history. Seventeen point review of system completed with the following notable findings: General: exhausted, headache, ENT: visual changes. Nose: non drainage, Respiratory: no cough, wheezing, Cardiovascular:, no shortness of breath Musculoskeletal: neck, hand and headaches. Neurologic: visual changes. Psychological: insomnia, anxiety, Physical Exam Vital Signs / I&Os Vital Signs Date Time Temp Pulse Resp B/P Pulse O2 O2 Flow FiO2 Ox Delivery Rate 11/18 0658 98.1 65 19 124/50 96 Room Air 11/18 0303 97.9 59 16 120/50 96 Room Air 11/18 0015 Room Air 11/17 2238 97.9 65 16 155/56 96 Room Air I&O 11/17 0800 11/17 1600 11/18 0000 Intake Total Output Total Balance General Appearance Oriented X3, Cooperative, No acute distress HEENT Atraumatic, PERRLA, EOMI, Moist mucous membranes Lungs Clear to auscultation, Normal air movement Neck No JVD, No thyromegaly, No lymphadenopathy, pain in the posterior neck with forced cervical flexion Cardiovascular Regular rate and rhythm, Normal S1 and S2 Abdomen Soft, No tenderness Extremities No cyanosis, No edema, No tenderness Skin No Breakdown, Nursing staff noting a fungal dermatitis. Neurological No lateralizing signs, strength equal bilaterally. Normal sensation. Cranial nerve exam was negative for pathologic change, no speech impediment or slurred speech. Normal facial contour. Visual meadows intact Psych/Mental Status Mood normal LAB Results Laboratory Tests 11/17 11/17 11/17 11/17 1445 1445 1525 1910 Chemistry Plasma Sodium (136 - 145 mmol/L) 144 Plasma Potassium (3.5 - 5.1 mmol/L) 4.0 Plasma Chloride (98 - 107 mmol/L) 109 CO2 (Enzymatic) (21 - 32 mmol/L) 28 BUN (7 - 18 mg/dL) 10 Creatinine (0.6 - 1.3 mg/dL) 0.9 Est GFR ( Amer) (mL/min) >60 Est GFR (Non-Af Amer) (mL/min) >60 Glucose (70 - 110 mg/dL) 90 Plasma Calcium (8.5 - 10.1 mg/dL) 9.2 Plasma Magnesium (1.8 - 2.4 mg/dL) 2.0 Total Bilirubin (0.0 - 1.0 mg/dL) 0.3 AST (15 - 37 U/L) 14 ALT (12 - 78 U/L) 21 Alkaline Phosphatase (46 - 116 U/L) 119 Creatine Kinase (24 - 260 U/L) 121 Troponin (0.00 - 1.5 ng/mL) <0.05 B-Natriuretic Peptide (5 - 100 pg/ml) 29.0 Total Protein (6.4 - 8.2 g/dL) 7.7 Albumin (3.3 - 5.0 g/dL) 3.9 TSH 3rd Generation (0.30 - 3.74 uIU/mL) 2.273 Cancelled Hematology WBC (4.5 - 11.5 K/uL) 7.5 RBC (4.00 - 5.20 M/uL) 4.75 Hgb (12.0 - 16.0 gm/dL) 15.4 Hct (36.0 - 46.0 %) 46.0 MCV (80 - 100 fL) 97 MCH (26 - 34 pg) 32 RDW (11.6 - 14.8 %) 12.6 Neut % (Auto) (50 - 75 %) 50.9 Lymph % (Auto) (25 - 40 %) 38.0 [place] % (Auto) (3 - 14 %) 5.9 Eos % (Auto) (0 - 4 %) 4.2 Baso % (Auto) (0 - 2 %) 1.0 Plt Count, EDTA (150 - 400 K/uL) 245 PUBS MCHC (31 - 37 g/dL) 33 Other Body Source CSF Tube Number 3 CSF Volume (CC) 3.0 CSF Appearance CLEAR CSF Color COLORLESS CSF WBC (0 - 5 WBC/mm3) 0 CSF RBC (0 - 5 RBC/mm3) 1 CSF Glucose (40 - 75 mg/dL) 57 CSF Total Protein (15 - 45 mg/dL) 51.9 Microbiology Date/Time Procedure - Status Source Growth 11/17 1909 CSF Culture - RES CSF 11/17 1909 Gram Stain - RES CSF Imaging CTA HEAD AND NECK IMPRESSION: 1. No significant stenosis, occlusion, or aneurysm in the brain vasculature. 2. Moderate diffusely diminutive mid left internal carotid artery without focal plaque formation visible. The distal portion is of normal caliber and clinical significance of this finding is uncertain. 3. 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 Chest x-ray IMPRESSION: 1. Minor left mid lung atelectasis/scarring. PROCEDURE: US BILATERAL CAROTID DOPPLER IMPRESSION: 1. Mild intimal thickening without hemodynamically significant lesion 2. Bilateral ICA 5-15% stenosis Assessment and Plan Problem List 1. TIA (transient ischemic attack) Plan Symptoms of been waxing and waning. Called [facility] attending stroke attending. All imaging is been negative. Her acute signs of ischemic changes or bleed. Plan to repeat MRI imaging the a.m. Patient is on stroke precautions and will have neuro checks every 2 hours. Patient will be placed on telemetry Carotid Dopplers showing no significant plaque. 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 Patient on atorvastatin 40 mg daily. Patient has recommendations through neurology to give TPA if symptoms again return. Starting IV fluid . Patient will have light meal. Patient will be monitored and watched. 2. Headache Plan Headache upon arrival to the ED. Spinal tap was negative. There is an elevated protein count. However, hold her constituents of the tap were not significant. Patient having worsening improving headache associated nausea. Patient was given antinausea formulations with improvement. Monitor headache. Treat with NSAIDs appropriately E&M Codes Roundin
[2016-11-18 03:03] VITALS: BP 120/50
--- NOTE | 2016-11-18 05:30 | NUR ---
PT SLEPT WELL. VSS AND NO COMPLAINTS OF PAIN. NEUROLOGICAL CHECKS DONE Q2 HRS, NO DEFICITS NOTED. SINUS CELESTE ON TELE DURING THE NIGHT.
[2016-11-18 06:58] VITALS: BP 124/50
--- NOTE | 2016-11-18 07:38 | ED DISCHARGE INSTRUCTIONS ---
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 ADDITIONAL INFORMATION TIA: Transient Ischemic Attack The spell you had today is called a TIA (mini-stroke). It is caused by a temporary decrease or blockage of blood flow to a part of your brain. A TIA often happens when a blood clot travels to a blood vessel in the brain. The clot reduces or blocks blood flow, resulting in the symptoms you had. After a short while, the clot dissolves, blood flows again, and the symptoms disappear. Persons with atherosclerosis (hardening of the arteries) or atrial fibrillation (a type of irregular heartbeat) are at higher risk of TIA. TIA causes temporary symptoms similar to a stroke, but lasts less than 24 hours. A full stroke causes symptoms that last more than 24 hours and may be permanent. Once you have had a TIA, you are at risk of having a full stroke. Therefore, be sure to follow up with your doctor for further evaluation. This may include an ultrasound of the arteries in your neck and an evaluation of your heart. If problems are found, your doctor will recommend treatment with medications and/or procedures. Medications to reduce your chance of having another TIA (and stroke) include those that prevent blood clots, such as antiplatelet medicines and anticoagulant medicines. Home care The following guidelines will help you take care of yourself at home: If all of your symptoms have resolved, there is nothing special that you need to do today. Rest at home and avoid exertion for the rest of the day. If your doctor has prescribed antiplatelet medication, take it as directed. Other ways to reduce your risk of a stroke Hypertension, diabetes, elevated cholesterol, and smoking are risk factors for stroke and heart disease. These can be controlled through medications, diet and lifestyle changes. Taking daily aspirin (or similar medications) is a simple but important part of preventing stroke. Follow-up care Call your doctor for an appointment in the next few days for another evaluation. Additional tests may be needed. If you had an X-ray, CT scan, MRI scan, or ECG (electrocardiogram), it will be reviewed by a specialist. Youll be notified of any new findings that will affect your care. When to call 911 or emergency services Get immediate medical attention if any of the following occur: Any of your TIA symptoms return New problems with speech, vision, walking, or weakness or numbeness of the face or on one side of the body Severe headache, fainting spell, dizziness, or seizure You have been given the following additional information: TIA: Transient Ischemic Attack (Electronically signed by Raoul Shore MD 11/18/2016 7:37)
--- NOTE | 2016-11-18 07:38 | ED MAR SUMMARY ---
..... Medication Administration Record [facility] [address] [place] [address] Patient: CHRISTA MONTENEGRO Visit ID: [id number] 61y, F Weight: 99.7 kg Height/Length: 63 in BMI: 38.9 ALLERGIES: No Known Drug Allergy Given 18:09 11/17/2016 Ada Nicole R.N. Medication Administered: DEMEROL [IVP] (MEPERIDINE HCL), Dose: 12.5 mg IVP over 30 second(s), Site: #1 right forearm. Medication Ordered: Demerol IV 12.5 mg (NOW). Given 19:06 11/17/2016 Ada Nicole R.N. Medication Administered: DILAUDID [IVP] (HYDROMORPHONE HCL PF), Dose: 0.5 mg IVP over 1 minute(s), Site: #1 right forearm. Medication Ordered: Dilaudid IV 0.5 mg (NOW). Given 20:26 11/17/2016 Katie Garrison R.N. Medication Administered: ASPIRIN [PO], Dose: 325 mg Tablets PO. Medication Ordered: Aspirin PO 325 mg (NOW). Given 21:38 11/17/2016 Ada Nicole R.N. Medication Administered: ZOFRAN [IVP] (ONDANSETRON HCL), Dose: 4 mg IVP over 2 minute(s), Site: #1 right forearm. Medication Ordered: Zofran IV 4 mg (NOW).
--- NOTE | 2016-11-18 07:38 | ED MAR SUMMARY ---
..... Medication Administration Record [facility] [address] [place] [address] Patient: CHRISTA MONTENEGRO Visit ID: [id number] 61y, F Weight: 99.7 kg Height/Length: 63 in BMI: 38.9 ALLERGIES: No Known Drug Allergy Given 18:09 11/17/2016 Ada Nicole R.N. Medication Administered: DEMEROL [IVP] (MEPERIDINE HCL), Dose: 12.5 mg IVP over 30 second(s), Site: #1 right forearm. Medication Ordered: Demerol IV 12.5 mg (NOW). Given 19:06 11/17/2016 Ada Nicole R.N. Medication Administered: DILAUDID [IVP] (HYDROMORPHONE HCL PF), Dose: 0.5 mg IVP over 1 minute(s), Site: #1 right forearm. Medication Ordered: Dilaudid IV 0.5 mg (NOW). Given 20:26 11/17/2016 Katie Garrison R.N. Medication Administered: ASPIRIN [PO], Dose: 325 mg Tablets PO. Medication Ordered: Aspirin PO 325 mg (NOW). Given 21:38 11/17/2016 Ada Nicole R.N. Medication Administered: ZOFRAN [IVP] (ONDANSETRON HCL), Dose: 4 mg IVP over 2 minute(s), Site: #1 right forearm. Medication Ordered: Zofran IV 4 mg (NOW).
--- NOTE | 2016-11-18 07:38 | ED MED RECONCILIATION SUMMARY ---
Patient: CHRISTA MONTENEGRO Medication Reconciliation Report [facility] VisitID: [id number] [address] [place] [address] 61y, F Registration Date/Time: 11/17/2016 Weight: 99.7 kg Height/Length: 63 in. BMI: 38.9 ALLERGIES: No Known Drug Allergy The patient's Home Medications are listed below: THE FOLLOWING MEDICATIONS NEED TO BE RECONCILED: Magnesium Oral Simvastatin Oral Zantac Oral The source(s) of the original Home Medication information: patient The following Medications were given to the patient in the Emergency Department: Demerol [IVP] IVP 12.5 mg, administered: 11/17/2016 6:09:00 PM Dilaudid [IVP] IVP 0.5 mg, administered: 11/17/2016 7:06:00 PM Aspirin [PO] PO 325 mg, administered: 11/17/2016 8:26:00 PM Zofran [IVP] IVP 4 mg, administered: 11/17/2016 9:38:00 PM The following Medications were prescribed to the patient: None.
--- NOTE | 2016-11-18 07:38 | ED MED RECONCILIATION SUMMARY ---
Patient: CHRISTA MONTENEGRO Medication Reconciliation Report [facility] VisitID: [id number] [address] [place] [address] 61y, F Registration Date/Time: 11/17/2016 Weight: 99.7 kg Height/Length: 63 in. BMI: 38.9 ALLERGIES: No Known Drug Allergy The patient's Home Medications are listed below: THE FOLLOWING MEDICATIONS NEED TO BE RECONCILED: Magnesium Oral Simvastatin Oral Zantac Oral The source(s) of the original Home Medication information: patient The following Medications were given to the patient in the Emergency Department: Demerol [IVP] IVP 12.5 mg, administered: 11/17/2016 6:09:00 PM Dilaudid [IVP] IVP 0.5 mg, administered: 11/17/2016 7:06:00 PM Aspirin [PO] PO 325 mg, administered: 11/17/2016 8:26:00 PM Zofran [IVP] IVP 4 mg, administered: 11/17/2016 9:38:00 PM The following Medications were prescribed to the patient: None.
--- NOTE | 2016-11-18 07:46 | Progress Note ---
Subjective General Note Date: November 18, 2016 Admission Date: November 17, 2016 Hospital Day: 2 PCP: Daniel López Status: Observation Advanced Directive: FULL CODE Room: 206 Brief History: The patient is a 61-year-old white female with significant past medical history COPD, remote history of smoking, bilateral median nerve entrapment, status post carpal tunnel reduction who presented to [facility] emergency department on the day of admission secondary to complaints of numbness and tingling involving the left hand, mostly the middle finger, along with bleeding visual loss and changes. Patient first began having noticeable subjective change was within the past 12- 14 hours. Secondary to the above, the patient was admitted by Justino Montano MD for further evaluation and treatment. For other history present illness, past medical history, family history, social history, review of systems, and admission physical examination please see the patient's history and physical examination and ER visit note in the patient's medical record. Subjective: The patient states she is doing well. No problem at this time. States ready for discharge Patient requests: None Medications and Allergies Medications Current Medications Sig/Mallika Start time Last Medication Dose Route Stop Time Status Admin Atorvastatin Calcium 40 MG QPM 11/18 1800 AC PO Aspirin 325 MG DAILY 11/18 899 AC PO Enoxaparin Sodium 40 MG DAILY 11/18 09 AC SC Nystatin See Dose BID 11/18 899 AC Insts (1) TOP Pantoprazole Sodium 40 MG DAILY@0600 11/18 0600 AC 11/18 Sesquihydrate PO 0613 Ibuprofen 200 MG Q4H PRN 11/17 2345 AC PO Acetaminophen 650 MG Q6H PRN 11/17 2199 AC PO Al Hydrox/Mg Hydrox/ 15 ML Q1H PRN 11/17 2199 AC Simethicone PO Atropine Sulfate 0.5 MG Q3MIN PRN 11/17 2199 AC IV Lidocaine HCl See Dose ONCE PRN 11/17 2199 AC Insts (2) IV Magnesium Hydroxide 10 ML DAILY PRN 11/17 2199 AC PO Morphine Sulfate 2 MG Q3MIN PRN 11/17 2199 AC IV Nitroglycerin 0.4 MG Q5MIN PRN 11/17 2199 AC SL Ondansetron HCl 4 MG Q6H PRN 11/17 2199 AC IV Sodium Chloride 1,000 ML ASDIRECTED 11/17 2199 AC 11/17 IV 2331 Dose Instructions: (1)Nystatin: TO AFFECTED AREA (2)Lidocaine HCl: 1.5 MG/KG Allergies Coded Allergies: NKA (11/18/16) Allergies No Known Drug Allergy. --14:52 Ada Nicole R.N. Physical Exam Vital Signs / I&Os Vital Signs Date Time Temp Pulse Resp B/P Pulse O2 O2 Flow FiO2 Ox Delivery Rate 11/18 0658 98.1 65 19 124/50 96 Room Air 11/18 0303 97.9 59 16 120/50 96 Room Air 11/18 0015 Room Air 11/17 2238 97.9 65 16 155/56 96 Room Air I&O 11/18 0000 11/17 1600 11/17 0800 Intake Total Output Total Balance General Appearance Alert, Oriented X3, Cooperative, No acute distress Lungs Clear to auscultation, Normal air movement Cardiovascular Regular rate and rhythm, Normal S1 and S2, No murmurs, gallops, rubs Abdomen Normal bowel sounds, Soft, No tenderness Extremities No cyanosis, No clubbing, No edema Neurological Normal gait, Cranial nerves intact, Strength 5/5 x4 ext's, No lateralizing signs Psych/Mental Status Mental status normal, Mood normal LAB Results Laboratory Tests 11/18 11/18 11/17 11/17 11/17 0540 0540 1910 1525 1445 Chemistry Plasma Sodium (136 - 145 mmol/L) 144 Plasma Potassium (3.5 - 5.1 mmol/L) 4.1 Plasma Chloride (98 - 107 mmol/L) 110 CO2 (Enzymatic) (21 - 32 mmol/L) 27 BUN (7 - 18 mg/dL) 9 Creatinine (0.6 - 1.3 mg/dL) 0.8 Est GFR ( Amer) (mL/min) >60 Est GFR (Non-Af Amer) (mL/min) >60 Glucose (70 - 110 mg/dL) 96 Hemoglobin A1c % (4.5 - 6.2 %) 5.8 Plasma Calcium (8.5 - 10.1 mg/dL) 8.5 Plasma Magnesium (1.8 - 2.4 mg/dL) 2.0 Total Bilirubin (0.0 - 1.0 mg/dL) 0.4 AST (15 - 37 U/L) 14 ALT (12 - 78 U/L) 17 Alkaline Phosphatase (46 - 116 U/L) 88 B-Natriuretic Peptide (5 - 100 pg/ml) 29.0 Total Protein (6.4 - 8.2 g/dL) 6.0 Albumin (3.3 - 5.0 g/dL) 2.9 Triglycerides (30 - 200 mg/dL) 98 Cholesterol (140 - 200 mg/dL) 141 LDL Cholesterol, Calc (mg/dL) 80 HDL Cholesterol (32 - 96 mg/dL) 42 LDL/HDL Ratio 1.9 Cholesterol/HDL Ratio 3.4 Coronary Risk Interp (0.4 - 1.0) 0.6 TSH 3rd Generation Cancelled Coagulation INR (0.8 - 1.2) 0.9 APTT (24 - 34 SECONDS) 25 Other Body Source CSF Tube Number 3 CSF Volume (CC) 3.0 CSF Appearance CLEAR CSF Color COLORLESS CSF WBC (0 - 5 WBC/mm3) 0 CSF RBC (0 - 5 RBC/mm3) 1 CSF Glucose (40 - 75 mg/dL) 57 CSF Total Protein (15 - 45 mg/dL) 51.9 11/17 1445 Chemistry Plasma Sodium (136 - 145 mmol/L) 144 Plasma Potassium (3.5 - 5.1 mmol/L) 4.0 Plasma Chloride (98 - 107 mmol/L) 109 CO2 (Enzymatic) (21 - 32 mmol/L) 28 BUN (7 - 18 mg/dL) 10 Creatinine (0.6 - 1.3 mg/dL) 0.9 Est GFR ( Amer) (mL/min) >60 Est GFR (Non-Af Amer) (mL/min) >60 Glucose (70 - 110 mg/dL) 90 Plasma Calcium (8.5 - 10.1 mg/dL) 9.2 Plasma Magnesium (1.8 - 2.4 mg/dL) 2.0 Total Bilirubin (0.0 - 1.0 mg/dL) 0.3 AST (15 - 37 U/L) 14 ALT (12 - 78 U/L) 21 Alkaline Phosphatase (46 - 116 U/L) 119 Creatine Kinase (24 - 260 U/L) 121 Troponin (0.00 - 1.5 ng/mL) <0.05 Total Protein (6.4 - 8.2 g/dL) 7.7 Albumin (3.3 - 5.0 g/dL) 3.9 TSH 3rd Generation (0.30 - 3.74 uIU/mL) 2.273 Hematology WBC (4.5 - 11.5 K/uL) 7.5 RBC (4.00 - 5.20 M/uL) 4.75 Hgb (12.0 - 16.0 gm/dL) 15.4 Hct (36.0 - 46.0 %) 46.0 MCV (80 - 100 fL) 97 MCH (26 - 34 pg) 32 RDW (11.6 - 14.8 %) 12.6 Neut % (Auto) (50 - 75 %) 50.9 Lymph % (Auto) (25 - 40 %) 38.0 Robeson % (Auto) (3 - 14 %) 5.9 Eos % (Auto) (0 - 4 %) 4.2 Baso % (Auto) (0 - 2 %) 1.0 Plt Count, EDTA (150 - 400 K/uL) 245 PUBS MCHC (31 - 37 g/dL) 33 Microbiology Date/Time Procedure - Status Source Growth 11/17 1909 CSF Culture - RES CSF 11/17 1909 Gram Stain - RES CSF Imaging Carotid Doppler and Ultrasound IMPRESSION: 1. Mild intimal thickening without hemodynamically significant lesion 2. Bilateral ICA 5-15% stenosis Velocity criteria are extrapolated from diameter data as defined by the Society of Radiologists in Ultrasound Consensus Conference, Radiology 2003; 229; 340-346. Dictated by: SAMAN PONCE MD D: VERENICE;11/17/[address] Head IMPRESSION: 1. No CT evidence of acute intracranial process. 2. Findings discussed with Dr. Shore at 1550 hours. Dictated by: DAGMAR QUILES MD D: BRIT;11/17/16 1552 Head CTA IMPRESSION: 1. No significant stenosis, occlusion, or aneurysm in the brain vasculature. 2. Moderate diffusely diminutive mid left internal carotid artery without focal plaque formation visible. The distal portion is of normal caliber and clinical significance of this finding is uncertain. 3. 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 4. Findings called to the emergency room and discussed with Dr. Montano. Dictated by: DAMGAR QUILES MD D: BRIT;11/17/16 3467 Assessment and Plan Problem List 1. TIA (transient ischemic attack) Plan -Patient presents with suspected TIA. -Primary visual disturbance noted. -Symptoms completely resolved. -No recent symptomatology. -CT scan, carotid Doppler and ultrasound, MRA, MRI, unremarkable -Plan discharge to home -Aspirin 325 mg by mouth daily 2. Headache Plan -Better -Recommended ibuprofen/Tylenol when necessary -Outpatient follow-up with PCP 3. COPD (chronic obstructive pulmonary disease) Status Chronic Onset Date Unknown Plan -Stable -Not problematic -No respiratory symptoms at this time -Continue albuterol inhalation therapy as needed 4. Hyperlipidemia Status Chronic Onset Date Unknown Plan -Stable -Lipid profile shows cholesterol 141, LDL 80, HDL 42, triglycerides 98 -Continue Lipitor 20 mg by mouth daily. Current status: Fair, improved Anticipated discharge date: Today Anticipated discharge placement: Home Patient care time: Time spent in chart review, patient interview, physical exam, CPOE, and care documentation: 30 minutes Visit to patient today: 2 Complexity of care: Moderate For other recommendations regarding discharge diet, activity, followup, and discharge medications please see the patient's discharge instructions. Greater than 30 min. was spent in the patient's discharge preparation including discharge interview and physical examination, progress note, discharge instructions, and discharge summary E&M Codes Discharge: Observation - All/[id number]
--- NOTE | 2016-11-18 08:18 | NUR ---
RECEIVED PT IN BED, AWAKE, ALERT, ORIENTED, COHERENT, COOPERATIVE. V/S TAKEN AND RECORDED. PT COMPLAINT OF HEADACHE, OFFERED TYLENOL OR PAIN MEDICATION, NICOTINE PATCH. PT DECLINED. " I WANT TO SMOKE AND HAVE A COFFEE" PT STATES. EXPLAINED TO PT ABOUT NON SMOKING FACILITY, PT SMILED AND ABOUT AHA DIET. PT UNDERSTOOD. [employer] IS HERE TO TAKE PT FOR MRI. PT IS STILL EATING, " IT'S OK I CAN GO" PT STATES. " I WANT TO GO HOME" PT STATES. PT WENT TO MRI. ASSISTED BY TECH TO LOBBY VIA WHEELCHAIR. AT 0948, PT IS BACK FROM MRI.
--- NOTE | 2016-11-18 10:40 | DIAGNOSTIC IMAGING REPORT ---
PROCEDURE: MR BRAIN W/WO CONTRAST INDICATION: Altered mental status. TECHNIQUE: T1 sagittal and T2 coronal images. T1, T2, FLAIR, gradient, and diffusion axial images of the brain. Following 15 ml of intravenous gadolinium, FAT-SAT T1 sagittal, axial and coronal images were obtained. COMPARISON: Head CT 11/17/2016. FINDINGS: Mild cortical atrophy and minor white matter chronic ischemic changes. There is no evidence of an acute CVA, hemorrhage, mass or abnormal enhancement. Normal vascular flow voids. Normal orbits. Mild ethmoid sinus disease. Mastoids are clear. IMPRESSION: 1. No acute intracranial abnormality 2. Mild cortical atrophy and minor white matter chronic ischemic changes 3. Ethmoid sinus disease 4. Results discussed with Dr. Braga
[2016-11-18 10:48] VITALS: BP 138/54
--- NOTE | 2016-11-18 10:57 | DIAGNOSTIC IMAGING REPORT ---
PROCEDURE: MRA HEAD WITHOUT CONTRAST INDICATION: TIA, Fluctuating neurological symptoms TECHNIQUE: Thin-cut gradient axial images with 3D MIP reconstructions in sagittal, axial, and coronal projections. COMPARISON: Head and neck CT 11/17/2016. FINDINGS: Posterior circulation: Mild stenosis of a 5 mm segment of distal left posterior cerebral artery. No aneurysm or occlusion. Anterior circulation: Mildly diminutive left A1 segment, normal variant. No aneurysm or occlusion. IMPRESSION: 1. 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 Results discussed with Dr. Braga
[2016-11-18] MEDS ORDERED: ENTERIC COATED325 M1 PO (11:18)
[2016-11-18] MEDS ORDERED: ALBUTEROL HFA60 DOSE IN (11:19)
--- NOTE | 2016-11-18 11:20 | Provider's Discharge Care Plan ---
Problem, Goal, Plan Problem List 1. TIA (transient ischemic attack) Goals: Improve disease control, Prevent disease progress Instructions: Follow up as directed, Take meds as directed
--- NOTE | 2016-11-18 11:20 | Provider's Discharge Care Plan ---
Problem, Goal, Plan Problem List 1. TIA (transient ischemic attack) Goals: Improve disease control, Prevent disease progress Instructions: Follow up as directed, Take meds as directed
--- NOTE | 2016-11-18 12:15 | NUR ---
" I AM READY TO GO HOME, I WANT TO SEE MY GIRLS" PT STATES. PT STILL COMPLAINTS OF HEADACHE, DENIES BLURRING OF VISION, DOUBLE VISION. DISCHARGE INSTRUCS., PRESC., GIVEN TO PT AND . QUESTIONS AND CONCERNS ANSWERED. AT 1220, PT FINISHED HER LUNCH. WENT HOME. ASSISTED BY ME TO THE LOBBY, PT PREFERS TO AMBULATE.
--- NOTE | 2016-11-19 02:59 | Discharge Summary ---
Discharge Summary Report Admit Date 11/17/16 Discharge Date 11/18/16 Admission Diagnosis 1. TIA 2. COPD 3. Hyperlipidemia Discharge Diagnosis 1. TIA 2. COPD 3. Hyperlipidemia Brief History The patient is a 61-year-old white female with significant past medical history COPD, remote history of smoking, bilateral median nerve entrapment, status post carpal tunnel reduction who presented to [facility] emergency department on the day of admission secondary to complaints of numbness and tingling involving the left hand, mostly the middle finger, along with bleeding visual loss and changes. Patient first began having noticeable subjective change was within the past 12- 14 hours. Secondary to the above, the patient was admitted by Justino Montano MD for further evaluation and treatment. For other history present illness, past medical history, family history, social history, review of systems, and admission physical examination please see the patient's history and physical examination and ER visit note in the patient's medical record. Hospital Course The following problems and their management were noted during the patient's hospitalization: 1. TIA The patient presented with history of left hand numbness and visual disturbance. The history is somewhat unclear on these at this time. The patient was admitted by Dr. Montano for concerns of possible TIA. Subsequent CT scan, carotid Doppler and ultrasound, CT angiogram, an MRI/MRA were unremarkable. Patient had no subsequent symptoms. She was discharged on aspirin 325 mg by mouth daily. She'll follow up with PCP next week. Further workup as necessary per PCP. 2. COPD Patient with history of COPD. No further evaluation at this time. Asymptomatic at this time. Continue albuterol MDI 2 inhalations every 6 hours when necessary shortness of breath. Follow-up with PCP 3. Hyperlipidemia The patient has a history of hyperlipidemia. Cholesterol profile showed only minimal elevation of LDL at 80. Continue Lipitor 20 mg by mouth daily. Outpatient follow-up with PCP. Low-fat/cholesterol diet. Discharge Instructions/Meds For other recommendations regarding discharge diet, activity, followup, and discharge medications please see the patient's discharge instructions. Discharge condition: Fair, improved Greater than 30 min. was spent in the patient's discharge preparation including discharge interview and physical examination, progress note, discharge instructions, and discharge summary The patient was interviewed and examined on the day of discharge. E&M Codes Discharge: Observation - All/[id number]
== END 2016-11-18 12:30 | disposition home or self-care (01) ==
LOC: ED SRH 14:39 → TRANS SRH 20:05 → ACUTE2 SRH 22:30
PROVIDERS: ADMIT Emergency Medicine
PROC: 009U3ZX Drainage of Spinal Canal, Percutaneous Approach, Diagnostic (ICD-10-PCS; principal; 2016-11-17)
DX: G45.9 Transient cerebral ischemic attack, unspecified (principal); R51 Headache; J44.9 Chronic obstructive pulmonary disease, unspecified; F17.210 Nicotine dependence, cigarettes, uncomplicated; E78.5 Hyperlipidemia, unspecified
CPT/HCPCS: 29230; 29251; 81344; 90074; 90100; 90134; 90309; 90616; 91286; 91320; 92070; 92610; 92653; 92690; 92720; 93140; 94001; 94060; 95030; 95059